=== PATIENT | male | born 2005 | race Hispanic/Latino ===

== ENCOUNTER 2024-09-15 03:42 | Emergency (ER) | payer SELFPAY ==
[~2024-09-15] VITALS: Ht 162.6 cm; Wt 92.1 kg
[2024-09-15 03:45] VITALS: BP 159/101; PULSE 119; RESP 20; TEMP 98.4
--- NOTE | 2024-09-15 04:16 | ERN ---
ED Note History of Present Illness Stated Complaint: C/O LACERATION TO RT MIDDLE FINGER Chief Complaint: Laceration/Avulsion Time Seen by MD: 03:54 Dictation: This is a 18-year-old male who came into the hospital emergency room with a family member with complaints of laceration to the right middle finger. 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 He blood from the site and they applied pressure for 15 minutes and they came in for evaluation Temperature 98.4 heart rate 119 respirations 20 blood pressure 159/101 pulse oximetry 99% Allergies: Coded Allergies: No Known Allergies (Unverified Allergy, Unknown, 09/15/24) Past Medical History Past Medical History: No Pertinent History Surgical History: None Family History: Negative RN Note Reviewed/Agreed w/PFSH: Yes Review of System Dictation As described in the history of present illness Constitutional: Negative for fever,chills, and weight loss Eyes: Negative for injury, pain,redness, and discharge ENT: Negative for injury,pain or swelling Cardiovascular: Negative for chest pain, palpitations, and edema Respiratory: Negative for shortness of breath, cough, and wheezing, Abdomen/GI: Negative for abdominal pain, nausea, vomiting, diarrhea, and constipation Back: Negative for injury and pain : Negative for injury, bleeding and discharge MS/Extremity: Negative for injury and deformity Skin: Negative for rash, and discoloration Neuro: Negative for headache, weakness, numbness, tingling, and seizure Psych: Negative for suicide ideation, homicidal ideation, and hallucinations Initial Vital Sign VS Vital Signs Date Time Temp Pulse Resp B/P (MAP) Pulse Ox O2 Delivery O2 Flow Rate FiO2 09/15/24 03:45 98.4 119 20 159/101 99 Room Air Physical Exam Dictation General: awake, alert, NAD Head/Face: Normocephalic, atraumatic Eyes: PERRL, EOMI, vision at baseline ENT: oral cavity clear, TMs clear, no signs of infection Neck: Trachea midline, supple, no nuchal rigidity Cardiovascular: RRR, normal S1/S2, No MRGs, no JVD Respiratory: CTAB, no respiratory distress, No rales or wheezes Abdomen: Soft, non-tender, non-distended, normal bowel sounds, no guarding or rebound. Skin: Warm, dry, normal turgor, no rash MS/Extremity: Pulses equal, no cyanosis, neurovascular intact, FROM RIGHT HAND MIDDLE FINGER IN THE MIDPORTION THIS IS A 1 CM LACERATION WHICH APPEARS CLEAN AND NOT ACTIVELY BLEEDING DURING MY EVALUATION. ABLE TO MOVE FINGERS WITHOUT ANY PROBLEM. THE LACERATION IS SUPERFICIAL ENOUGH THAT I DO NOT SEE ANY DEEP TENDONS OR OBVIOUS BONE EXPOSURE Neuro: COAx4, GCS 15, strength 5/5, CN 2-12 intact, normal cerebellar exam, normal gait, Psych: Normal behavior, mood, and affect normal Extremities-trace edema without any palpable cords, Homans sign is negative Results (Laboratory/Radiology) Labs Reviewed?: Yes ED Course ED Course Orders Procedure Category Date Status Time Finger(S) 2+Vws Rt RAD 09/15/24 Taken 04:09 Dermabond (Dermabond) PHA 09/15/24 Complete 04:50 Current Medications Medications (Trade) Dose Ordered Sig/Paola Route PRN Reason Start Time Stop Time Status Last Admin Dose Admin Octyl Cyanoacrylate (Dermabond) 1 each STK-MED ONCE TP 09/15/24 04:50 09/15/24 04:50 DC Vital Signs Date Time Temp Pulse Resp B/P (MAP) Pulse Ox O2 Delivery O2 Flow Rate FiO2 09/15/24 03:45 98.4 119 20 159/101 99 Room Air Medical Decision Making MDM MDM: Differential diagnosis: Laceration contamination with the debris, foreign body and a piece of glass Rationale: Tests considered and ordered secondary to shared decision making include: Previous outside records reviewed: Old ER visits. Risk of complication and/or morbidity or mortality of patient management: None Medications-Per medication reconciliation Need for hospitalization: Patient does not meet criteria for hospitalization. Need for emergency major/minor surgery: No There are no social concerns with this patient. Prescription drug management Prescriptions will include symptomatic care Patient's prior external medical records from other ER visits were reviewed by me as indicated. Prior testing and results from previous visits were reviewed. Prior tests were taken into account with medical decision making and resource utilization, independent historian/historians were used to obtain complete medical history. I independently interpreted the test that were performed, results were reviewed by me and considered findings on radiology if ordered. Medical management and examination interpretation discussions were had by me with other qualified healthcare professionals as indicated for the patient's c are. Procedure Wound Location: upper extremity Wound's Depth, Shape: superficial, into muscle Wound Explored: clean Betadine Prep?: Yes Wound Debrided: minimal Wound Repaired With: Steri-strips, Dermabond Layer Closure?: No Sterile Dressing Applied?: Yes Problem List Problem List: (1) Laceration of right middle finger (2) Injury of right middle finger DX & DISP Disposition: Discharge Departure Impression: Primary Impression: Injury of right middle finger Additional Impression: Laceration of right middle finger Condition: Stable Additional Instructions: Patient and the caregiver have been informed of all the diagnostic tests and the imaging conducted during the today's visit to the emergency room and has verbalized understanding of the results I have personally reviewed and interpreted all diagnostic exams performed here in the ER today as well as the vital signs documented by the nursing staff. The patient is now being discharged to home and should follow up with the primary care physician or the specialist as directed by the ER staff. Follow-up with primary care provider in 1 to 2 days. Take medications as directed here in the emergency room. Okay to continue home medications unless otherwise discussed during your visit in the emergency room today. Return to your nearest emergency room if symptoms worsen or if there is no improvement. Call 911 if you need immediate assistance. Take Tylenol or Motrin [id number] as needed and if no contraindications are present. Increase oral hydration. A wound culture or urine culture was ordered here in the emergency room department please follow-up with primary care provider and advise them to get repeat ports from our facility. If you had any Hamzah wrap/splints that were applied here, please do not remove them until you see your primary care or specialty. Referrals: SELF,REFERRAL (PCP) MARCELLO HAYNES MD Sep 15, 2024 04:16
--- NOTE | 2024-09-15 05:30 | NUR ---
WOUND CLEANED WITH WOUND CLEANSER. DERMABOND
[2024-09-15] MEDS: teTANUS/diphthERIA TOXOID [ADULT] 0.5 ML VIAL IM ONE (05:34)
[2024-09-15] MEDS: OCTYL 2-CYANOACRYLATE 1 EACH TP ONE (05:34)
--- NOTE | 2024-09-15 09:03 | HMCIMG ---
FINGER(S) 2+VWS RT HISTORY: Ulceration COMPARISON: None TECHNIQUE: 3 images of right middle finger were obtained. FINDINGS: There is no acute displaced fracture or dislocation. No evidence of radiopaque foreign body is seen. Soft tissue swelling is seen. Nonradiopaque foreign body cannot be excluded. IMPRESSION: 1. Findings as described above.
== END 2024-09-15 05:44 | disposition home or self-care (01) ==
LOC: EDH 03:42
DX: S61.212A Laceration without foreign body of right middle finger without damage to nail, initial encounter (principal); W25.XXXA Contact with sharp glass, initial encounter; Y93.89 Activity, other specified; Y92.89 Other specified places as the place of occurrence of the external cause; Y99.8 Other external cause status
CPT/HCPCS: 12001; 73140; 90714; 99283